=== PATIENT | male | born 1930 | race Caucasian/White ===

== ENCOUNTER 2016-08-12 05:53 | Day surgery (SDC) | payer BC, SELFPAY ==
[2016-08-09 14:56] LABS: HEMATOCRIT 43.1 % (40.0-51.0); HEMOGLOBIN 14.6 g/dL (13.6-17.8)
[2016-08-09 15:08] LABS: BUN (BLOOD UREA NITROGEN) 13 MG/DL (6-23); CALCIUM, SERUM 8.9 MG/DL (8.5-10.4); CHLORIDE, SERUM 108 MMOL/L (96-112); CO2 (CARBON DIOXIDE) 27 MMOL/L (24-34); CREATININE 1.14 MG/DL (0.70-1.30); GFR AFRICAN AMERICAN 68 ML/MIN (>=60); GFR NON AFRICAN AMERICAN 58 ML/MIN (>=60); GLUCOSE, SERUM 126 MG/DL (60-99); POTASSIUM, SERUM 4.6 MMOL/L (3.5-5.3); SODIUM, SERUM 144 MMOL/L (135-148)
[~2016-08-12 05:53] MED LIST: ASAB PO; AUG1000 PO; CITRACAL PO; COREG3 PO; CRESTOR40 MG PO; ELIQUIS 5 MG TAB5 MG PO; FISH OIL1200 MG PO; FLONASE NAS; GLUCPH PO; L20 PO; LEVEMFLXPN SC; LIPITOR40 PO; LOM PO; MULTIPLE VIT PO; MULTIVIT/MIN PO; PEP20 PO; PRILO PO; PRIN5 PO; VITAMIN D31000 UNIT PO; WELCHOL 625 MG625 MG OR; WELCHOL625 MG OR; ZOCOR20 PO
== END 2016-08-12 23:59 | disposition home or self-care (01) ==
LOC: SDC 05:53
PROVIDERS: Ophthalmology
PROC: 085K3ZZ Destruction of Left Lens, Percutaneous Approach (ICD-10-PCS; principal; 2016-08-12 07:45)
DX: H25.12 Age-related nuclear cataract, left eye (principal); H35.30 Unspecified macular degeneration; E11.9 Type 2 diabetes mellitus without complications; I49.9 Cardiac arrhythmia, unspecified; E78.00 Pure hypercholesterolemia, unspecified; I82.401 Acute embolism and thrombosis of unspecified deep veins of right lower extremity; K44.9 Diaphragmatic hernia without obstruction or gangrene; M19.90 Unspecified osteoarthritis, unspecified site; I26.99 Other pulmonary embolism without acute cor pulmonale; Z79.899 Other long term (current) drug therapy; Z79.84 Long term (current) use of oral hypoglycemic drugs; Z88.8 Allergy status to other drugs, medicaments and biological substances; Z95.0 Presence of cardiac pacemaker; Z79.51 Long term (current) use of inhaled steroids
CPT/HCPCS: 80048; 82962; 85014; 85018; 93005; J2405; V2787